=== PATIENT | male | born 1955 | race Two or more races ===

== ENCOUNTER 2024-06-14 15:34 | Emergency (ER) | payer OTHER ==
[~2024-06-14] VITALS: Ht 175.3 cm; Wt 81.0 kg
[2024-06-14] MEDS ORDERED: TAMS0.4C94 PO (15:53)
[2024-06-14 15:56] VITALS: TEMP 98
[2024-06-14 19:30] VITALS: BP 126/72; PULSE 72; RESP 16; O2SAT 98
[2024-06-14] MEDS: TraMADol HCL 50 MG TABLET PO ONE (21:55)
[2024-06-14] MEDS ORDERED: TRAM50TA5 PO (22:09)
== END 2024-06-14 23:03 | disposition home or self-care (01) ==
LOC: EMS 15:34
DX: S82.435A Nondisplaced oblique fracture of shaft of left fibula, initial encounter for closed fracture (principal); W22.8XXA Striking against or struck by other objects, initial encounter; Y93.89 Activity, other specified; Y92.89 Other specified places as the place of occurrence of the external cause; Y99.0 Civilian activity done for income or pay
CPT/HCPCS: 29515; 99284; 73590-TC; 73610-TC; Z7502; Z7610